=== PATIENT | male | born 1965 | race Caucasian/White ===

== ENCOUNTER 2018-12-10 16:13 | Emergency (ER) | payer OTHER ==
[~2018-12-10] VITALS: Ht 177 cm; Wt 102.0 kg
--- NOTE | 2018-12-10 17:33 | Diagnostic Imaging Report ---
INDICATION: Dropped heavy object onto the left foot. TIME OF EXAM: 5:18 PM 3 views of the left foot demonstrate a transversely oriented fracture through the mid shaft of the distal phalanx of the great toe. Remaining phalanges are intact. Metatarsals are unremarkable. Midfoot and hindfoot are unremarkable. IMPRESSION: Transverse oriented midshaft fracture of the distal phalanx great toe. Dictated by: Dictated on workstation # [id number]
[2018-12-10] MEDS ORDERED: HYDROcodone/APAP 5 MG/325 MG (LORTAB) TAB PO ONE (17:45)
[2018-12-10] MEDS ORDERED: LIDOCAINE 1% INJ 20 ML 20 ML VIAL INJ ONE (17:45)
--- NOTE | 2018-12-10 18:39 | ED Lower Extremity ---
General Chief Complaint: Laceration Stated Complaint: LAC ON LT FOOT Nursing Triage Note: PT AMBULATE TO TRIAGE WITH C/O LEFT FOOT LAC ACROSS THE TOP OF THE TOES. PT STATES WAS REMOVING A PIECE OF STEEL FROM THE BACK OF A PICKUP TRUCK AND IT FELL ONTO HIS TOES. 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 He was helping a friend move when a piece of metal dropped prematurely before he was ready for it to on the top of his foot. Tetanus is not up-to-date. Onset: just prior to arrival Severity: moderate Pain/Injury Location: left 1st toe, left 2nd toe, left 4th toe Method of Injury: direct blow Modifying Factors: Worse With Movement Allergies and Home Medications Allergies Coded Allergies: No Known Drug Allergies (Unverified , 12/10/18) Patient Home Medication List Home Medication List Reviewed: Yes Review of Systems Constitutional: see HPI EENTM: see HPI Respiratory: no symptoms reported Cardiovascular: no symptoms reported Genitourinary: no symptoms reported Musculoskeletal: see HPI Skin: no symptoms reported Psychiatric/Neurological: No Symptoms Reported Past Qngeuls-Gubgvx-Fgqxeg Hx Patient Social History Alcohol Use: Occasionally Uses Recreational Drug Use: No Smoking Status: Never a Smoker 2nd Hand Smoke Exposure: Yes Recent Foreign Travel: No Contact w/Someone Who Travel: No Recent Infectious Disease Expo: No Recent Hopitalizations: No Physical Abuse: No Sexual Abuse: No Mistreated: No Fear: No Seasonal Allergies Seasonal Allergies: Yes Past Medical History Surgeries: Yes Adenoidectomy, Tonsillectomy Respiratory: No Cardiac: Yes Hypertension Neurological: No Genitourinary: No Gastrointestinal: No Musculoskeletal: Yes (BROKE RIGHT LEG A YOUTH) Fractures HEENT: No Cancer: No Psychosocial: No Integumentary: No Blood Disorders: No Physical Exam Vital Signs Vital Signs - First Documented 12/10/18 16:53 Temp 37.1 Pulse 101 Resp 18 B/P (MAP) 161/100 (120) Pulse Ox 97 O2 Delivery Room Air Capillary Refill : Less Than 3 Seconds Height, Weight, BMI Height: '" Weight: lbs. oz. kg; 32.00 BMI Method: General Appearance: WD/WN, no apparent distress HEENT: PERRL/EOMI, normal ENT inspection Respiratory: no respiratory distress, no accessory muscle use Hips: bilateral hip non-tender, bilateral hip normal inspection, bilateral hip normal range of motion Legs: bilateral leg non-tender, bilateral leg normal inspection, bilateral leg normal range of motion Knees: bilateral knee non-tender, bilateral knee normal inspection, bilateral knee normal range of motion Ankles: bilateral ankle non-tender, bilateral ankle normal inspection, bilateral ankle normal range of motion Feet: left foot other (across the dorsum of the left great toe is a laceration all the way down to/through the bone, this is 4 cm in length across the proximal portion of the distal phalanx which also injured the proximal nail/nail fold. Digital block was done, scrubbed with a SOTERO/saline solution and irrigated copiously with the same. No foreign bodies were identified. This was closed with 40 simple interrupted sutures. The nail that remained attached to the nailbed distally was left in place to act as a splint. The dorsal aspect middle phalanx second toe has a 1 cm laceration. Digital block was done, wound was scrubbed with Betadine/saline solution and irrigated with the same. No foreign identified, laceration was down to the extensor tendon sheath but not through it. This was irrigated with Betadine/saline solution then closed with 3 simple interrupted sutures. The third toe had some bruising dorsally but no laceration. Fourth toe has a 1.5 cm laceration dorsally over the PIP joint with laceration through the extensor tendon allowing the middle phalanx to sublux in a plantar fashion over the proximal phalanx. This was anesthetized with a digital block, irrigated with Betadine/saline solution and closed with 4-0 Prolene sutures. A total of 14 sutures were placed between all 3 toes. This was covered with Xeroform gauze and gauze roll. He was given a postop shoe. He is from [facility], states he'll call an orthopedic surgeon on Wednesday to make an appointment to be seen for follow-up, discussed with him the need for this evidently great toe nail matrix injury, fracture and extensor tendon injury on the fourth toe. Tetanus will be updated, this is an open fractures of the recei basilia 1 g of Ancef intramuscular. He'll be given Keflex for home usage and hydrocodone.) Neurologic/Psychiatric: alert, normal mood/affect, oriented x 3 Skin: normal color, warm/dry Distal aspect of each toe has brisk capillary refill Progress/Results/Core Measures Results/Orders My Orders Orders - JOSE LUIS LEA APRN Foot, Left, 3 Views (12/10/18 17:04) Hydrocodone/Apap 5/325 Tablet (Lortab 5 (12/10/18 17:45) Lidocaine 1% Inj 20 Ml (Xylocaine 1% Inj (12/10/18 17:45) Rx-Hydrocodone/Apap 5-325 Mg (Rx-Vicodin (12/10/18 18:45) Dipht,Pertuss(Acell),Tet Adult (Boostrix (12/10/18 18:45) Cefazolin Injection (Ancef Injection) (12/10/18 18:45) Medications Given in ED Current Medications Medications Dose Ordered Sig/Elis Route Start Time Stop Time Status Last Admin Dose Admin Acetaminophen/ Hydrocodone Bitart 1 tab ONCE ONCE PO 12/10/18 17:45 12/10/18 17:46 DC 12/10/18 17:48 1 TAB Lidocaine HCl 2 ml ONCE ONCE INJ 12/10/18 17:45 12/10/18 17:46 DC 12/10/18 17:49 2 ML Vital Signs/I&O 12/10/18 16:53 Temp 37.1 Pulse 101 Resp 18 B/P (MAP) 161/100 (120) Pulse Ox 97 O2 Delivery Room Air Blood Pressure Mean: 120 Departure Communication (Admissions) He states he'll follow up with orthopedic surgeon in [place] most likely from [facility]. Impression Primary Impression: Open toe fracture Qualified Codes: S92.912B - Unspecified fracture of left toe(s), initial encounter for open fracture Additional Impression: Toe laceration involving tendon Qualified Codes: S91.119A - Laceration without foreign body of unspecified toe without damage to nail, initial encounter; S96.929A - Laceration of unspecified muscle and tendon at ankle and foot level, unspecified foot, initial encounter Disposition: 01 HOME, SELF-CARE Condition: Stable Departure-Patient Inst. Decision time for Depature: 18:42 Referrals: NO,LOCAL PHYSICIAN (PCP/Family) Primary Care Physician Patient Instructions: Laceration Repair With Stitches (DC), Toe Fracture Add. Discharge Instructions: 1. Leave the dressing in place clean and dry for about 36-48 hours. After that you may remove the bandage, shower and then reapply the dressing gently with the materials provided. Take antibiotics as directed, pain medication as needed. Wear the shoe provided until directed otherwise by orthopedics. Call orthopedic surgeon or supervisor properties of your choosing on Wednesday to make an appointment to be seen for follow-up regarding the toe fracture, tendon injury and nail matrix injury. Scripts Hydrocodone Bit/Acetaminophen (Hydrocodone/Acetaminophen 5/325mg Tablet) 1 Tab Tab 1 EACH PO Q4-6HR PRN for PAIN-MODERATE MDD 10 for 3 Days, #20 TAB Prov: JOSE LUIS LEA APRN 12/10/18 Cephalexin (Cephalexin) 500 Mg Tablet 500 MG PO QID, #20 TAB 0 Refills Prov: JOSE LUIS LEA APRN 12/10/18 JOSE LUIS LEA APRN Dec 10, 2018 18:39
[2018-12-10] MEDS ORDERED: ACHD5005 PO (18:44)
[2018-12-10] MEDS ORDERED: CEPH500T PO (18:44)
[2018-12-10] MEDS ORDERED: ceFAZolin INJECTION 1,000 MG VIAL IM ONE (18:45)
[2018-12-10] MEDS ORDERED: RX-HYDROCODONE/APAP 5/325 MG #4 TAB PK PO PRN (18:45)
[2018-12-10] MEDS ORDERED: TETANUS,DIPTH,PERTUSS P/F (BOOSTRIX) 0.5 ML VIAL IM ONE (18:45)
[2018-12-10] MEDS ORDERED: WATER (STERILE) FOR INJECTION 10 ML ONE (18:56)
[2018-12-10 19:19] VITALS: BP 142/118
== END 2018-12-10 19:20 | disposition home or self-care (01) ==
LOC: ER 16:16
DX: S92.912B Unspecified fracture of left toe(s), initial encounter for open fracture (principal); S91.112A Laceration without foreign body of left great toe without damage to nail, initial encounter; S91.115A Laceration without foreign body of left lesser toe(s) without damage to nail, initial encounter; I10 Essential (primary) hypertension; Z23 Encounter for immunization; Z87.81 Personal history of (healed) traumatic fracture; Z77.22 Contact with and (suspected) exposure to environmental tobacco smoke (acute) (chronic); Z90.89 Acquired absence of other organs; W20.8XXA Other cause of strike by thrown, projected or falling object, initial encounter
CPT/HCPCS: 12042; 64450; 73630; 90471; 90715; 96372